=== PATIENT | female | born 1970 | race Caucasian/White ===

== ENCOUNTER 2023-08-05 18:06 | Observation (INO) | payer OTHER ==
[2023-08-05 18:39] VITALS: BMI 41.8
[2023-08-05] MEDS ORDERED: Ondansetron ODT 4 MG TAB PO PRN (18:59)
[2023-08-05] MEDS ORDERED: Nitroglycerin 0.4 MG TAB (25 Tab Bottle) SL PRN (18:59)
[2023-08-05] MEDS ORDERED: Ondansetron PF 4 MG/2 ML Vial IVP PRN (18:59)
[2023-08-05] MEDS ORDERED: Ketorolac Tromethamine 30 MG/ML VIAL IVP PRN (19:06)
[2023-08-05 20:25] LABS: Troponin I Less than 0.010 ng/mL (< 0.028)
[2023-08-05] MEDS: Acetaminophen 325 MG TAB PO PRN (21:10)
[2023-08-05] MEDS: metroNIDAZOLE 500 MG in Premix 1 BAG IVPB SCH (21:11)
[2023-08-06 00:50] LABS: Troponin I 0.012 ng/mL (< 0.028)
[2023-08-06 06:21] LABS: #Basophils 0.1 thou/uL (0.0-0.2); #Eosinphils 0.2 thou/uL (0.0-0.7); #Monocytes 0.5 thou/uL (0.11-0.59); #Neutrophils 3.5 thou/uL (1.40-6.50); %Basophils 0.8 % (0.0-1.0); %Eosinophils 3.4 % (0.0-10.0); %Lymphocytes 29.9 % (21.0-51.0); %Monocytes 8.2 % (0.0-10.0); %Neutrophils 57.5 % (42.0-75.0); Hemoglobin 11.5 g/dL (12.0-16.0); Mean Corpuscular HGB CONC 32.9 g/dL (32.0-36.0); Mean Corpuscular Hemoglobin 29.3 pg (27.0-31.0); Mean Corpuscular Volume 89.3 fl (78.0-98.0); Platelet Count 228 10x3/uL (130-400); RBC Distribution Width 13.3 % (11.5-14.5); Red Blood Cell (RBC) Count 3.92 mill/uL (4.20-5.40); White Blood Cell (WBC) Count 6.1 10x3/uL (4.8-10.8)
[2023-08-06] MEDS: metroNIDAZOLE 500 MG in Premix 1 BAG IVPB SCH ×2 (06:37→14:10)
[2023-08-06 06:48] LABS: Anion Gap 13 mmol/L (10-20); BUN (Urea Nitrogen) 14 mg/dL (9.8-20.1); Calc. Creatinine Clearance 141 mL/min (70-130); Calcium 8.5 mg/dL (7.8-10.44); Carbon Dioxide 24 mmol/L (22-29); Chloride 109 mmol/L (98-107); Cholesterol 165 mg/dl (< 200 Desired); Estimated GFR 95; Glucose 100 mg/dL (70-105); HDL Cholesterol 41 mg/dL (>60 Neg Risk); LDL Cholesterol, Calculated 113 mg/dL; Potassium 3.8 mmol/L (3.5-5.1); Sodium 142 mmol/L (136-145); Triglycerides 55 mg/dL (Less than 150)
[2023-08-06] MEDS ORDERED: Aspirin Chewable 81 MG TAB PO SCH (09:00)
[2023-08-06] MEDS: Acetaminophen 325 MG TAB PO PRN ×4 (09:45→14:34)
[2023-08-06] MEDS ORDERED: Regadenoson 0.4 MG/5 ML SYRINGE ONE (09:57)
[2023-08-06] MEDS ORDERED: cefTRIAXone\\ROCEPHIN 1 GM in Sodium Chloride 0.9% 100 ML IVPB SCH (16:30)
[2023-08-06 17:08] VITALS: BP 135/58; TEMP 97.4
== END 2023-08-06 17:48 | disposition home or self-care (01) ==
LOC: 2SW 18:06 → INTOOBSV 18:06
PROVIDERS: ADMIT Internal Medicine; ATTEND Internal Medicine
DX: R07.9 Chest pain, unspecified (principal); K11.20 Sialoadenitis, unspecified; I08.1 Rheumatic disorders of both mitral and tricuspid valves; E03.9 Hypothyroidism, unspecified; I10 Essential (primary) hypertension; E66.01 Morbid (severe) obesity due to excess calories; Z68.41 Body mass index [BMI] 40.0-44.9, adult; Z90.710 Acquired absence of both cervix and uterus; Z90.49 Acquired absence of other specified parts of digestive tract; Z87.891 Personal history of nicotine dependence; Z88.0 Allergy status to penicillin
CPT/HCPCS: 36415; 78452; 80048; 80061; 84443; 85025; 93017; 93306; 94760; 96374; 96376; A9500; G0378; J2785